=== PATIENT | female | born 1960 ===

== ENCOUNTER 2018-03-23 16:19 | Emergency (ER) | payer SELFPAY ==
[2018-03-23] MEDS ORDERED: NACL 0.9% 1000 ML 1,000 ML IV ONE ×2 (16:54→17:53)
--- NOTE | 2018-03-23 17:08 | Emergency Department Report ---
Chief Complaint: Abdominal Pain Stated Complaint: CONSTIPATION/ABD PAIN Time Seen by Provider: 03/23/18 17:07 - HPI History of Present Illness: Pt to ER writhing with abd pain and low back pain. She tried to have BM this AM and since has been in pain. Family reports rectal bleeding. Bulgarian speaking. Home meds lipid meds To Main ED for eval - Exam Vital Signs: Vital Signs 03/23/18 16:48 Temperature 97.6 F Pulse Rate 89 Respiratory 18 Rate Blood Pressure 124/82 MSE screening note: Focused history and physical exam performed. Due to findings the following was ordered: ED Disposition for MSE Condition: Stable Instructions: Abdominal Pain (ED)
[2018-03-23 17:21] LABS: Basophils % (Auto) 0.3 % (0.0-1.8); Hematocrit 37.6 % (30.3-42.9); Hemoglobin 12.3 gm/dl (10.1-14.3); Lymphocytes # (Auto) 2.3 K/mm3 (1.2-5.4); Lymphocytes % (Auto) 14.3 % (13.4-35.0); Mean Corpuscular HGB Conc 33 % (30-34); Mean Corpuscular Hemoglobin 28 pg (28-32); Mean Corpuscular Volume 87 fl (79-97); Monocytes # (Auto) 0.8 K/mm3 (0.0-0.8); Monocytes % (Auto) 5.2 % (0.0-7.3); Platelet Count 371 K/mm3 (140-440); Red Blood Count 4.33 M/mm3 (3.65-5.03); Red Cell Distribution Width 15.1 % (13.2-15.2)
[2018-03-23 17:45] LABS: Alanine Aminotransferase 23 units/L (7-56); BUN/Creatinine Ratio 18; Blood Urea Nitrogen 9 mg/dL (7-17); Calcium 8.3 mg/dL (8.4-10.2); Hemolysis Index 10
[2018-03-23] MEDS ORDERED: SUBLIMAZE IV ONE (17:53)
--- NOTE | 2018-03-23 17:55 | Emergency Department Report ---
ED General Adult HPI - General Chief complaint: Abdominal Pain Stated complaint: CONSTIPATION/ABD PAIN Time Seen by Provider: 03/23/18 17:07 Source: patient, family Mode of arrival: Ambulatory Limitations: Language Barrier - History of Present Illness Initial comments: This is a 58-year-old female who is not known to this provider previously. Patient is accompanied by family members, and requests that family member service translators. Patient presents to the ER with nontraumatic bilateral lower quadrant pain which started this morning, and associated constipation. This pain is constant, and increases with palpation, and decreases with having a bowel movement, which the patient ultimately performed in the emergency room. Patient apparently took a suppository at home, initially without clinical effect. Patient also reported straining quite heavily, and reported some mixed red blood with brown stool. In the emergency room, the patient was initially quite uncomfortable, and had mildly tender lower abdomen, without rebound, guarding or peritoneal signs. The patient's rectal examination demonstrated a fecal impaction, with brown stool, that was trace guaiac positive. After rectal examination, patient went to the restroom, and had a large bowel movement. She reported near-complete resolution of her symptoms, reporting that her abdominal pain was improved, denied vomiting, denied urinary symptoms, and declined additional laxative placement. -: Gradual Location: abdomen Consistency: now resolved Improves with: medication, other (improved with rectal examination and subsequent defecation) Worsens with: other (patient initially worsened with palpation) Associated Symptoms: loss of appetite, malaise, nausea/vomiting, weakness, other (as per history of present). denies: confusion, chest pain, cough, diaphoresis, fever/chills, headaches, rash, seizure, shortness of breath, syncope - Related Data Previous Rx's Medication Instructions Recorded Last Taken Type Acetaminophen [Tylenol Arthritis] 650 mg PO Q6HR PRN #30 tablet.er 03/23/18 Unknown Rx Ondansetron [Zofran Odt] 4 mg PO Q8HR PRN #20 tab.rapdis 03/23/18 Unknown Rx Allergies Allergy/AdvReac Type Severity Reaction Status Date / Time No Known Allergies Allergy Unverified 03/23/18 16:54 ED Review of Systems ROS: Stated complaint: CONSTIPATION/ABD PAIN Other details as noted in HPI Constitutional: malaise. denies: fever Eyes: denies: eye discharge ENT: denies: epistaxis Respiratory: denies: cough Cardiovascular: denies: chest pain Gastrointestinal: abdominal pain, constipation, hematochezia. denies: melena Genitourinary: denies: dysuria Musculoskeletal: arthralgia Skin: denies: lesions Neurological: weakness Psychiatric: anxiety ED Past Medical Hx - Past Medical History Hx Hypertension: No - Surgical History Additional Surgical History: spleen - Social History Smoking Status: Never Smoker - Medications Home Medications: Home Medications Medication Instructions Recorded Confirmed Last Taken Type Acetaminophen [Tylenol Arthritis] 650 mg PO Q6HR PRN #30 tablet.er 03/23/18 Unknown Rx Ondansetron [Zofran Odt] 4 mg PO Q8HR PRN #20 tab.rapdis 03/23/18 Unknown Rx ED Physical Exam - General Limitations: Language Barrier General appearance: alert, anxious, in distress, obese - Head Head exam: Present: atraumatic, normocephalic - Eye Eye exam: Present: normal appearance, EOMI. Absent: nystagmus - ENT ENT exam: Present: normal exam, normal orophraynx, mucous membranes moist, normal external ear exam - Neck Neck exam: Present: normal inspection, full ROM. Absent: tenderness, meningismus - Respiratory Respiratory exam: Present: normal lung sounds bilaterally. Absent: respiratory distress - Cardiovascular Cardiovascular Exam: Present: regular rate, normal rhythm, normal heart sounds. Absent: bradycardia, tachycardia, irregular rhythm, systolic murmur, diastolic murmur, rubs, gallop - GI/Abdominal GI/Abdominal exam: Present: soft, tenderness. Absent: distended, guarding, rebound, rigid, pulsatile mass - Rectal Rectal exam: Present: normal inspection, normal rectal tone, heme (+) stool, fecal impaction, other (chaperoned by GREYSON Barahona). Absent: black stool, bloody stool - Extremities Exam Extremities exam: Present: normal inspection, full ROM, other (2+ pulses noted in the bilateral upper, lower extremities. Compartments soft. No long bony tenderness. The pelvis is stable.). Absent: pedal edema, joint swelling, calf tenderness - Back Exam Back exam: Present: normal inspection, full ROM. Absent: tenderness, CVA tenderness (R), paraspinal tenderness, vertebral tenderness - Neurological Exam Neurological exam: Present: alert, CN II-XII intact, normal gait, other (Extraocular movements intact. Tongue midline. No facial droop. Facial s ensation intact to light touch in the V1, V2, V3 distribution bilaterally. 5 and 5 strength in 4 extremities.. Sensation is intact to light touch in 4 extremities.). Absent: motor sensory deficit - Psychiatric Psychiatric exam: Present: anxious - Skin Skin exam: Present: warm, dry, intact, normal color. Absent: rash ED Course Vital Signs 03/23/18 03/23/18 16:48 19:10 Temperature 97.6 F 98.6 F Pulse Rate 89 96 H Respiratory 18 16 Rate Blood Pressure 124/82 Blood Pressure 114/47 [Left] O2 Sat by Pulse 100 Oximetry - Reevaluation(s) Reevaluation #1: 03/23/18 20:35 Differential diagnosis, including not limited to: Constipation, fecal impaction, anal fissure, reactive proctitis secondary to fecal impaction Assessment and plan: 58-year-old female with clinical fecal impaction, now resolved, CT scan was performed after patient had a rectal examination and subsequent bowel movements. For the history and physical, I do not suspect infectious proctitis, but rather reactive/inflammatory. Patient is afebrile with reassuring vital signs, and clinically feels improved. She is given IV fluids, was found to have mild hyponatremia, repeat sodium level is pending at this time. She will be started on diet last modifications, and she will need to follow up with an outpatient primer charger. Reevaluation #2: 03/23/18 20:53 Sodium improved. We will discharge at this point in time. ED Medical Decision Making - Lab Data Result diagrams: 03/23/18 17:10 03/23/18 20:12 Vital Signs 03/23/18 03/23/18 16:48 19:10 Temperature 97.6 F 98.6 F Pulse Rate 89 96 H Respiratory 18 16 Rate Blood Pressure 124/82 Blood Pressure 114/47 [Left] O2 Sat by Pulse 100 Oximetry Lab Results 03/23/18 03/23/18 03/23/18 Range/Units 17:10 17:10 17:10 WBC 16.1 H (4.5-11.0) K/mm3 RBC 4.33 (3.65-5.03) M/mm3 Hgb 12.3 (10.1-14.3) gm/dl Hct 37.6 (30.3-42.9) % MCV 87 (79-97) fl MCH 28 (28-32) pg MCHC 33 (30-34) % RDW 15.1 (13.2-15.2) % Plt Count 371 (140-440) K/mm3 Lymph % (Auto) 14.3 (13.4-35.0) % [place] % (Auto) 5.2 (0.0-7.3) % Eos % (Auto) 0.0 (0.0-4.3) % Baso % (Auto) 0.3 (0.0-1.8) % Lymph # 2.3 (1.2-5.4) K/mm3 [place] # 0.8 (0.0-0.8) K/mm3 Eos # 0.0 (0.0-0.4) K/mm3 Baso # 0.0 (0.0-0.1) K/mm3 Seg Neutrophils % 80.2 H (40.0-70.0) % Seg Neutrophils # 12.9 H (1.8-7.7) K/mm3 Sodium 126 L (137-145) mmol/L Potassium 3.4 L (3.6-5.0) mmol/L Chloride 89.3 L (98-107) mmol/L Carbon Dioxide 22 (22-30) mmol/L Anion Gap 18 mmol/L BUN 9 (7-17) mg/dL Creatinine 0.5 L (0.7-1.2) mg/dL Estimated GFR > 60 ml/min BUN/Creatinine Ratio 18 % Glucose 130 H (65-100) mg/dL Calcium 8.3 L (8.4-10.2) mg/dL Total Bilirubin 0.30 (0.1-1.2) mg/dL AST 29 (5-40) units/L ALT 23 (7-56) units/L Alkaline Phosphatase 104 (35-129) units/L Total Protein 7.7 (6.3-8.2) g/dL Albumin 4.0 (3.9-5) g/dL Albumin/Globulin Ratio 1.1 % Lipase 38 (13-60) units/L Urine Color (Yellow) Urine Turbidity (Clear) Urine pH (5.0-7.0) Ur Specific [place] (1.003-1.030) Urine Protein (Negative) mg/dL Urine Glucose (UA) (Negative) mg/dL Urine Ketones (Negative) mg/dL Urine Blood (Negative) Urine Nitrite (Negative) Urine Bilirubin (Negative) Urine Urobilinogen (<2.0) mg/dL Ur Leukocyte Esterase (Negative) Urine WBC (Auto) (0.0-6.0) /HPF Urine RBC (Auto) (0.0-6.0) /HPF U Epithel Cells (Auto) (0-13.0) /HPF Urine Mucus /HPF 03/23/ Range/Units 19:10 WBC (4.5-11.0) K/mm3 RBC (3.65-5.03) M/mm3 Hgb (10.1-14.3) gm/dl Hct (30.3-42.9) % MCV (79-97) fl MCH (28-32) pg MCHC (30-34) % RDW (13.2-15.2) % Plt Count (140-440) K/mm3 Lymph % (Auto) (13.4-35.0) % [place] % (Auto) (0.0-7.3) % Eos % (Auto) (0.0-4.3) % Baso % (Auto) (0.0-1.8) % Lymph # (1.2-5.4) K/mm3 [place] # (0.0-0.8) K/mm3 Eos # (0.0-0.4) K/mm3 Baso # (0.0-0.1) K/mm3 Seg Neutrophils % (40.0-70.0) % Seg Neutrophils # (1.8-7.7) K/mm3 Sodium (137-145) mmol/L Potassium (3.6-5.0) mmol/L Chloride (98-107) mmol/L Carbon Dioxide (22-30) mmol/L Anion Gap mmol/L BUN (7-17) mg/dL Creatinine (0.7-1.2) mg/dL Estimated GFR ml/min BUN/Creatinine Ratio % Glucose (65-100) mg/dL Calcium (8.4-10.2) mg/dL Total Bilirubin (0.1-1.2) mg/dL AST (5-40) units/L ALT (7-56) units/L Alkaline Phosphatase (35-129) units/L Total Protein (6.3-8.2) g/dL Albumin (3.9-5) g/dL Albumin/Globulin Ratio % Lipase (13-60) units/L Urine Color Straw (Yellow) Urine Turbidity Clear (Clear) Urine pH 6.0 (5.0-7.0) Ur Specific [place] 1.005 (1.003-1.030) Urine Protein <15 mg/dl (Negative) mg/dL Urine Glucose (UA) 50 (Negative) mg/dL Urine Ketones Neg (Negative) mg/dL Urine Blood Mod (Negative) Urine Nitrite Neg (Negative) Urine Bilirubin Neg (Negative) Urine Urobilinogen < 2.0 (<2.0) mg/dL Ur Leukocyte Esterase Sm (Negative) Urine WBC (Auto) 7.0 H (0.0-6.0) /HPF Urine RBC (Auto) 15.0 (0.0-6.0) /HPF U Epithel Cells (Auto) < 1.0 (0-13.0) /HPF Urine Mucus Few /HPF - Radiology Data Radiology results: report reviewed, image reviewed Referring Physician: CHERELLE MOELLER Patient Name: BRE CORRALES Date of : 1960 Sex: Female Report Date: 2018-03-23 Report Status: [place] [address] Cat Scan Report Signed Patient: BRE SIMMONS MR#: [id number] : 1960 Acct:[id number] Age/Sex: 58 / F ADM Date: 03/23/18 Loc: ED Attending Dr: Ordering Physician: CHERELLE MOELLER MD Date of Service: 03/23/18 Procedure(s): CT abdomen pelvis w con Accession Number(s): [id number] cc: CHERELLE MOELLER MD FINAL REPORT EXAM: CT ABDOMEN PELVIS W CON HISTORY: abd pain fecal impaction bleed TECHNIQUE: CT abdomen and pelvis with intravenous contrast PRIORS: None. FINDINGS: No acute abnormality identified in the lung bases. No focal abnormality identified within the liver parenchyma. Patient is status post cholecystectomy. The the spleen demonstrates normal size and attenuation. No pancreatic abnormalities seen. The kidneys demonstrate symmetric contrast enhancement. No evidence of hydronephrosis. The adrenal glands are unremarkable Abdominal aorta is normal in caliber. No pathologically enlarged lymph nodes are identified. No signs of free fluid or free air No evidence of small bowel dilatation. Colon is nondistended. No pericolonic inflammatory change. Appendix is identified and is unremarkable. There is some thickened appearance of the rectal wall with adjacent hazy opacities suspicious for proctitis no extraluminal abscess identified. Urinary bladder is unremarkable. IMPRESSION: Findings suspicious for proctitis Transcribed By: JOSEPH Dictated By: JIMENA TIWARI MD Electronically Authenticated By: JIMENA TIWARI MD Signed Date/Time: 03/23/181918 Critical care attestation.: If time is entered above; I have spent that time in minutes in the direct care of this critically ill patient, excluding procedure time. ED Disposition Clinical Impression: History of fecal impaction Disposition: TO HOME OR SELFCARE Is pt being admited?: No Does the pt Need Aspirin: No Condition: Stable Instructions: Constipation (ED), High Fiber Diet (ED) Additional Instructions: Patient should increase water consumption to 6-8 cups of water per day. Eat plenty of fruits, fibers, vegetables. Take the pain medications as needed/directed. Follow up with her primary care doctor or primer charger within the next 6 weeks. Patient over the age of 50, and should have a colonoscopy at some point after the age of 50, preferably within the next year, to exclude cancer, tumor, malignancy. Return to the ER right away with new pain, worsened pain, migration of pain, projectile vomiting, change in mental status, confusion, inability to tolerate liquid feeds. Do not take metformin for the next 48 hours if patient takes this medication. CT scan of the abdomen and pelvis demonstrated no acute emergent findings, but incidental findings were noted, which should be followed up by her primary care doctor or primer charger within the next 6 weeks. Please have a primary care doctor or primer charger contact the medical records department to obtain CT scan results, and review/addressed nonemergent incidental findings. El paciente debe aumentar el consumo de agua a 6-8 tazas de agua por da. [place] muchas frutas, fibras, verduras. [place] los analgsicos segn sea necesario / ind icado. Maria Guadalupe un seguimiento con hinson mdico de atencin primaria o gastroenterlogo dentro de las prximas 6 semanas. Paciente mayor de 50 aos, y debe realizarse falguni colonoscopia en algn momento despus de los 50 aos, preferiblemente dentro del prximo ao, para excluir el cncer, el tumor y la malignidad. Regrese a la magnus de emergencias de inmediato con dolor nuevo, dolor empeorado, migracin del dolor, vmitos con proyectiles, cambios en el estado mental, confusin, incapacidad para tolerar alimentos lquidos. No tome metformina shagufta las prximas 48 horas si el paciente polly rabia medic amento. La tomografa computarizada del abdomen y la pelvis no mostr hallazgos de emergencia agudos, gary se observaron hallazgos incidentales, que deben ser seguidos por hinson mdico de atencin primaria o gastroenterlogo dentro de las prximas 6 semanas. Maria Guadalupe que un mdico de atencin primaria o un gastroenterlogo se comunique con el departamento de registros mdicos para obtener los resultados de falguni tomografa computarizada y revise / aborde los hallazgos incidentales no emergentes. Prescriptions: Acetaminophen [Tylenol Arthritis] 650 mg PO Q6HR PRN #30 tablet.er PRN Reason: Pain Ondansetron [Zofran Odt] 4 mg PO Q8HR PRN #20 tab.rapdis PRN Reason: Nausea Referrals: [facility] [Provider Group] - 3-5 Days [facility] [Provider Group] - 3-5 Days Print Language: ICELANDIC
--- NOTE | 2018-03-23 19:19 | Cat Scan Report ---
FINAL REPORT EXAM: CT ABDOMEN PELVIS W CON HISTORY: abd pain fecal impaction bleed TECHNIQUE: CT abdomen and pelvis with intravenous contrast PRIORS: None. FINDINGS: No acute abnormality identified in the lung bases. No focal abnormality identified within the liver parenchyma. Patient is status post cholecystectomy. The the spleen demonstrates normal size and attenuation. No pancreatic abnormalities seen. The kidneys demonstrate symmetric contrast enhancement. No evidence of hydronephrosis. The adrenal glands are unremarkable Abdominal aorta is normal in caliber. No pathologically enlarged lymph nodes are identified. No signs of free fluid or free air No evidence of small bowel dilatation. Colon is nondistended. No pericolonic inflammatory change. Appendix is identified and is unremarkable . There is some thickened appearance of the rectal wall with adjacent hazy opacities suspicious for pro ctitis no extraluminal abscess identified. Urinary bladder is unremarkable. IMPRESSION: Findings suspicious for proctitis
[2018-03-23 19:23] LABS: Bilirubin,Urine NEG (Negative); Blood,Urine MOD (Negative); Color,Urine Straw (Yellow); Mucus,Urine FEW /HPF; Protein,Urine <15 mg/dL mg/dL (Negative); Urobilinogen,Urine < 2.0 mg/dL (<2.0)
[2018-03-23 20:13] VITALS: BP 114/47
== END 2018-03-23 20:55 | disposition home or self-care (01) ==
LOC: ED 16:19
DX: K56.41 Fecal impaction (principal); R11.2 Nausea with vomiting, unspecified; F41.9 Anxiety disorder, unspecified
CPT/HCPCS: 36415; 74177; 80053; 81001; 82271; 83690; 84295; 85025; 96360; 96361; 99284; J7030; Q9967